=== PATIENT | male | born 1950 | race Caucasian/White ===

== ENCOUNTER 2018-03-04 18:23 | Emergency (ER) | payer SELFPAY ==
[2018-03-04 22:10] LABS: ADD MAN DIFF? NO
[2018-03-04 22:17] LABS: WHITE BLOOD COUNT 6.9 10^3/ul (4.8-10.8)
[2018-03-04 22:17] LABS: BASOPHILS % 0.3 % (0.0-2.0); EOSINOPHILS # 0.8 10^3/ul (0.0-0.5); EOSINOPHILS % 11.1 % (0.0-7.0); HEMATOCRIT 43.6 % (42.0-52.0); HEMOGLOBIN 14.7 g/dl (14.0-18.0); LYMPHOCYTES % 13.9 % (15.0-51.0); MEAN CORPUSCULAR HEMOGLOBIN 30.3 pg (29.0-33.0); MEAN CORPUSCULAR HGB CONC 33.7 g/dl (32.0-37.0); MEAN CORPUSCULAR VOLUME 89.9 fl (82.0-101.0); MEAN PLATELET VOLUME 9.7 fl (7.4-10.4); MONOCYTE # 0.7 10^3/ul (0.3-0.9); MONOCYTES % 9.7 % (0.0-11.0); NEUTROPHIL # 4.5 10^3/ul (1.6-7.5); NEUTROPHILS % 64.3 % (39.0-77.0); PLATELET COUNT 286 10^3/UL (140-415); RED BLOOD COUNT 4.85 10^6/ul (4.70-6.10); RED CELL DISTRIBUTION WIDTH 13.4 % (11.5-14.5)
[2018-03-04 22:23] LABS: ADD UMIC YES; UR ASCORBIC ACID NEGATIVE (NEGATIVE); UR BILIRUBIN (Dip) NEGATIVE (NEGATIVE); UR BLOOD (Dip) NEGATIVE (NEGATIVE); UR CLARITY CLEAR (CLEAR); UR COLOR YELLOW (YELLOW); UR GLUCOSE (Dip) NEGATIVE (NEGATIVE); UR KETONES (Dip) NEGATIVE (NEGATIVE); UR LEUKOCYTE ESTERASE (Dip) TRACE Leu/ul (NEGATIVE); UR NITRITE (Dip) NEGATIVE (NEGATIVE); UR RBC 1 /HPF (0-5); UR SPECIFIC GRAVITY (Dip) 1.013 (1.003-1.030); UR TOTAL PROTEIN (Dip) NEGATIVE (NEGATIVE); UR UROBILINOGEN (Dip) NEGATIVE (NEGATIVE); UR WBC 0 /HPF (0-5)
[2018-03-04 22:36] LABS: ALANINE AMINOTRANSFERASE 14 IU/L (13-69); ALBUMIN 3.9 g/dl (3.3-4.9); ALBUMIN/GLOBULIN RATIO 1.21; ALKALINE PHOSPHATASE 53 IU/L (42-121); AMPHETAMINE/METHAMPHETAMINE Negative (NEGATIVE); ANION GAP 9 (8-16); ASPARTATE AMINO TRANSFERASE 31 IU/L (15-46); BARBITURATES Negative (NEGATIVE); BENZODIAZEPINES Negative (NEGATIVE); BILIRUBIN,INDIRECT 1.1 mg/dl (0-1.1); BILIRUBIN,TOTAL 1.1 mg/dl (0.2-1.3); BLOOD UREA NITROGEN 20 mg/dl (7-20); CANNABINOIDS Negative (NEGATIVE); CARBON DIOXIDE 25 mmol/L (21-31); CHLORIDE 110 mmol/L (97-110); COCAINE Negative (NEGATIVE); CREATININE 1.02 mg/dl (0.61-1.24); GLUCOSE 114 mg/dl (70-220); OPIATES Negative (NEGATIVE); POTASSIUM 3.9 mmol/L (3.5-5.1); SODIUM 140 mmol/L (135-144); TOTAL PROTEIN 7.1 g/dl (6.1-8.1)
[2018-03-04 22:39] LABS: ACETAMINOPHEN < 10.0 ug/ml (10.0-30.0); ETHANOL < 10.0 mg/dl; SALICYLATE < 1.0 mg/dl (5.0-30.0)
[2018-03-04] MEDS: CIPROFLOXACIN 500 MG TAB PO (23:06)
[2018-03-04] MEDS: PHENAZOPYRIDINE 100 MG TAB PO (23:06)
[2018-03-04] MEDS: FLUCONAZOLE 150 MG TAB PO (23:46)
== END 2018-03-05 00:32 | disposition home or self-care (01) ==
LOC: E/R 03-05 00:32
DX: M19.90 Unspecified osteoarthritis, unspecified site (principal); I50.9 Heart failure, unspecified; R21 Rash and other nonspecific skin eruption; R40.2142 Coma scale, eyes open, spontaneous, at arrival to emergency department; R40.2252 Coma scale, best verbal response, oriented, at arrival to emergency department; R40.2362 Coma scale, best motor response, obeys commands, at arrival to emergency department
CPT/HCPCS: 36415; 71045; 73610; 73610-RT; 80053; 80307; 81001; 85025; 93970; 99285-25